=== PATIENT | female | born 1960 | race African-American/Black ===

== ENCOUNTER 2024-08-09 13:27 | Inpatient (IN) | payer OTHER ==
[2024-08-09] MEDS ORDERED: KETOROLAC TROMETHAMINE 15 MG/ML VIAL ONE (15:22)
[2024-08-09] MEDS ORDERED: DEXAMETHASONE SOD PHOSPHATE 10 MG/1 ML VIAL ONE (15:22)
[2024-08-09] MEDS: KETOROLAC TROMETHAMINE 30 MG/1 ML VIAL IM ONE (15:30)
[2024-08-09] MEDS: DEXAMETHASONE SOD PHOSPHATE 10 MG/1 ML VIAL IM ONE (15:31)
[2024-08-09] MEDS ORDERED: METHOCARBAMOL 500 MG TABLET ONE (17:10)
[2024-08-09] MEDS: METHOCARBAMOL 500 MG TABLET PO ONE (17:13)
[2024-08-09] MEDS ORDERED: ACETAMINOPHEN 500 MG TABLET (FP) ONE (18:35)
[2024-08-09] MEDS: ACETAMINOPHEN 500 MG TABLET (FP) PO ONE (18:39)
[2024-08-09] MEDS ORDERED: morphine SULFATE 4 MG/ML VIAL ONE (21:40)
[2024-08-09] MEDS: morphine CARPU-JECT 4 MG/1 ML DISP.SYRIN IVPUSH ONE (21:45)
[2024-08-09 21:50] LABS: HEMATOCRIT 44.3 % (32.4-45.2); HEMOGLOBIN 14.9 GM/dL (10.7-15.3); MCH 29.9 pg (25.7-33.7); MCHC 33.6 g/dl (32.0-36.0); MEAN CELL VOLUME 88.9 fl (80-96); MEAN PLT VOLUME 8.3 fl (7.5-11.1); PLATELET COUNT 333 10^3/uL (134-434); RBC 4.98 M/mm3 (3.60-5.2); RDW 13.5 % (11.6-15.6); WHITE BLOOD COUNT 10.8 K/mm3 (4.0-10.0)
[2024-08-09 22:02] LABS: POTASSIUM 4.2 mmol/L (3.5-5.1)
[2024-08-09 22:04] LABS: CALCIUM 9.1 mg/dL (8.5-10.1)
[2024-08-09 22:05] LABS: BLOOD UREA NITROGEN 8.7 mg/dL (7-18)
[2024-08-09 22:09] LABS: BILIRUBIN,TOTAL 0.4 mg/dL (0.2-1); TOT PROT 7.6 g/dl (6.4-8.2)
[2024-08-09 23:45] LABS: ANISOCYTOSIS 0; HELMET CELLS 0; HOWELL-JOLLY BODIES 0; MACROCYTOSIS 0; OVALOCYTE 0; ROULEAU 0; SICKELED CELLS 0; TARGET CELLS 0; TEAR DROP CELLS 0; TOXIC GRANULATION 0
[2024-08-10] MEDS ORDERED: ACETAMINOPHEN 1000 MG/100 ML BAG IVPB PRN (00:17)
[2024-08-10] MEDS: KETOROLAC TROMETHAMINE 15 MG/ML VIAL IVPUSH PRN (01:01)
[2024-08-10] MEDS ORDERED: morphine SULFATE 4 MG/ML VIAL ONE ×2 (01:39→05:10)
[2024-08-10] MEDS: morphine SULFATE 4 MG/ML VIAL IVPUSH PRN (01:59)
[2024-08-10] MEDS ORDERED: MELATONIN 5 MG TABLETS ONE (02:22)
[2024-08-10] MEDS: MELATONIN 5 MG TABLETS PO ONE (02:26)
[2024-08-10] MEDS ORDERED: morphine SULFATE 4 MG/ML VIAL IVPUSH PRN (07:03)
[2024-08-10 07:33] LABS: HEMATOCRIT 43.8 % (32.4-45.2); HEMOGLOBIN 14.4 GM/dL (10.7-15.3); MCH 29.6 pg (25.7-33.7); MEAN CELL VOLUME 89.7 fl (80-96); MEAN PLT VOLUME 8.8 fl (7.5-11.1); PLATELET COUNT 348 10^3/uL (134-434); RBC 4.88 M/mm3 (3.60-5.2); WHITE BLOOD COUNT 11.7 K/mm3 (4.0-10.0)
[2024-08-10] MEDS: METHOCARBAMOL 750 MG TABLET PO SCH (07:56)
[2024-08-10] MEDS ORDERED: methylPREDNISolone 8 MG TABLET PO ONE (08:08)
[2024-08-10 08:20] LABS: POTASSIUM 4.8 mmol/L (3.5-5.1)
[2024-08-10 08:43] LABS: BLOOD UREA NITROGEN 10.4 mg/dL (7-18)
[2024-08-10 08:44] LABS: CALCIUM 9.5 mg/dL (8.5-10.1)
[2024-08-10 08:45] LABS: ALBUMIN 3.7 g/dl (3.4-5.0); MAGNESIUM 2.2 mg/dL (1.8-2.4)
[2024-08-10 08:48] LABS: CREATININE 0.7 mg/dL (0.55-1.3); PHOSPHOROUS 3.1 mg/dL (2.5-4.9)
[2024-08-10 08:50] LABS: BILIRUBIN,TOTAL 0.6 mg/dL (0.2-1)
[2024-08-10] MEDS: METHOCARBAMOL 500 MG TABLET PO SCH (09:50)
[2024-08-10] MEDS: ENOXAPARIN NA (PORCINE) 40 MG/0.4 ML DISP.SYRIN SQ SCH (09:51)
[2024-08-10] MEDS: ACETAMINOPHEN 500 MG TABLET (FP) PO SCH (09:53)
[2024-08-10] MEDS: GABAPENTIN 300 MG CAPSULE PO SCH (09:53)
[2024-08-10 10:38] VITALS: BMI 27.0
[2024-08-10] MEDS: NAPROXEN 500 MG TABLET PO SCH (10:54)
[2024-08-10] MEDS: METHYLPREDNISOLONE PO ONE (10:54)
[2024-08-10] MEDS: traMADol HCL 50 MG TABLET PO PRN (10:55)
[2024-08-10] MEDS: oxyCODONE HCL 5 MG TABLET PO PRN (12:40)
[2024-08-10] MEDS: LIDOCAINE 5% TOPICAL PATCH TP SCH (13:21)
[2024-08-10 17:13] LABS: EPI CELLS 8 /uL (0-25.1); HYALINE CASTS 0 /uL (0-3.1); URINE APPEARANCE CLEAR; URINE BACTERIA 75 /uL (0-1359); URINE BILIRUBIN NEGATIVE (NEGATIVE); URINE COLOR YELLOW; URINE GLUCOSE (UA) NEGATIVE (NEGATIVE); URINE KETONE TRACE (NEGATIVE); URINE LEUK ESTERASE 1+ (NEGATIVE); URINE NITRITE NEGATIVE (NEGATIVE); URINE PROTEIN NEGATIVE (NEGATIVE); URINE RBC 11 /uL (0-23.9); URINE WBC 21 /uL (0-25.8)
[2024-08-10] MEDS: SODIUM CHLORIDE 1,000 ML IV SCH (18:30)
[2024-08-10] MEDS: MELATONIN 5 MG TABLETS PO PRN (21:58)
[2024-08-10] MEDS: LIDOCAINE PATCH REMOVAL MC SCH (22:05)
[2024-08-11] MEDS ORDERED: methylPREDNISolone 8 MG TABLET PO ONE (08:00)
[2024-08-11] MEDS: METHYLPREDNISOLONE PO ONE (08:05)
[2024-08-11] MEDS: diphenhydrAMINE HCL 25 MG CAPSULE (FP) PO ONE (08:37)
[2024-08-11 09:54] LABS: BASO % 0.5 % (0-2.0); EOS % 0.1 % (0-4.5); HEMATOCRIT 41.5 % (32.4-45.2); HEMOGLOBIN 13.8 GM/dL (10.7-15.3); LYMPH % 30.7 % (8-40); MCH 29.6 pg (25.7-33.7); MCHC 33.4 g/dl (32.0-36.0); MEAN CELL VOLUME 88.8 fl (80-96); MEAN PLT VOLUME 8.4 fl (7.5-11.1); MONO % 5.4 % (3.8-10.2); NEUT % 63.3 % (42.8-82.8); PLATELET COUNT 305 10^3/uL (134-434); RBC 4.67 M/mm3 (3.60-5.2); RDW 13.2 % (11.6-15.6); WHITE BLOOD COUNT 14.1 K/mm3 (4.0-10.0)
[2024-08-11 10:13] LABS: POTASSIUM 4.2 mmol/L (3.5-5.1)
[2024-08-11 10:15] LABS: CALCIUM 8.8 mg/dL (8.5-10.1); MAGNESIUM 1.9 mg/dL (1.8-2.4)
[2024-08-11 10:18] LABS: CREATININE 0.9 mg/dL (0.55-1.3)
[2024-08-11 10:19] LABS: PHOSPHOROUS 3.4 mg/dL (2.5-4.9)
[2024-08-11] MEDS ORDERED: diphenhydrAMINE HCL 25 MG CAPSULE (FP) PO PRN (14:15)
[2024-08-12 08:55] LABS: BASO % 0.6 % (0-2.0); EOS % 0.2 % (0-4.5); HEMOGLOBIN 13.9 GM/dL (10.7-15.3); LYMPH % 54.5 % (8-40); MCH 29.3 pg (25.7-33.7); MCHC 33.2 g/dl (32.0-36.0); MEAN CELL VOLUME 88.3 fl (80-96); MEAN PLT VOLUME 8.7 fl (7.5-11.1); MONO % 6.8 % (3.8-10.2); NEUT % 37.9 % (42.8-82.8); PLATELET COUNT 297 10^3/uL (134-434); RBC 4.76 M/mm3 (3.60-5.2); RDW 13.2 % (11.6-15.6); WHITE BLOOD COUNT 12.6 K/mm3 (4.0-10.0)
[2024-08-12 09:00] LABS: INR 0.93 (0.83-1.09); PROTHROMBIN TIME (PATIENT) 10.7 SEC (9.7-13.0)
[2024-08-12 09:15] LABS: POTASSIUM 4.1 mmol/L (3.5-5.1)
[2024-08-12 09:17] LABS: ALBUMIN 3.4 g/dl (3.4-5.0); BLOOD UREA NITROGEN 11.9 mg/dL (7-18); CALCIUM 8.8 mg/dL (8.5-10.1)
[2024-08-12 09:20] LABS: CREATININE 0.8 mg/dL (0.55-1.3); PHOSPHOROUS 3.1 mg/dL (2.5-4.9)
[2024-08-12 09:22] LABS: BILIRUBIN,TOTAL 0.5 mg/dL (0.2-1); TOT PROT 6.1 g/dl (6.4-8.2)
[2024-08-13 10:16] LABS: BASO % 0.5 % (0-2.0); EOS % 0.6 % (0-4.5); HEMATOCRIT 43.3 % (32.4-45.2); HEMOGLOBIN 14.2 GM/dL (10.7-15.3); LYMPH % 48.8 % (8-40); MCH 29.2 pg (25.7-33.7); MCHC 32.8 g/dl (32.0-36.0); MEAN PLT VOLUME 8.7 fl (7.5-11.1); MONO % 8.1 % (3.8-10.2); PLATELET COUNT 313 10^3/uL (134-434); RBC 4.87 M/mm3 (3.60-5.2); RDW 13.3 % (11.6-15.6); WHITE BLOOD COUNT 12.1 K/mm3 (4.0-10.0)
[2024-08-13 10:38] LABS: POTASSIUM 4.1 mmol/L (3.5-5.1)
[2024-08-13 10:48] LABS: ALBUMIN 3.6 g/dl (3.4-5.0); BLOOD UREA NITROGEN 7.9 mg/dL (7-18); CALCIUM 8.9 mg/dL (8.5-10.1); MAGNESIUM 2.1 mg/dL (1.8-2.4)
[2024-08-13 10:52] LABS: CREATININE 0.8 mg/dL (0.55-1.3)
[2024-08-13 10:53] LABS: BILIRUBIN,TOTAL 0.6 mg/dL (0.2-1); TOT PROT 6.4 g/dl (6.4-8.2)
[2024-08-13] MEDS ORDERED: oxyCODONE HCL 5 MG TABLET PO PRN (14:13)
[2024-08-13] MEDS ORDERED: CYCLOBENZAPRINE HCL 10 MG TABLET (FP) PO PRN (15:15)
[2024-08-13] MEDS: CYCLOBENZAPRINE HCL 5 MG TABLET PO PRN (21:09)
[2024-08-13] MEDS: BISACODYL 10 MG SUPP.RECT PR ONE (21:15)
[2024-08-13] MEDS: POLYETHYLENE GLYCOL (HEALTHYLAX) 3350 17 GM PACKET PO SCH (22:07)
[2024-08-14 10:35] LABS: BASO % 0.6 % (0-2.0); EOS % 1.8 % (0-4.5); HEMATOCRIT 42.5 % (32.4-45.2); HEMOGLOBIN 14.2 GM/dL (10.7-15.3); LYMPH % 54.7 % (8-40); MCH 29.6 pg (25.7-33.7); MCHC 33.4 g/dl (32.0-36.0); MEAN CELL VOLUME 88.7 fl (80-96); MEAN PLT VOLUME 8.9 fl (7.5-11.1); MONO % 7.8 % (3.8-10.2); NEUT % 35.1 % (42.8-82.8); PLATELET COUNT 313 10^3/uL (134-434); RBC 4.79 M/mm3 (3.60-5.2); RDW 13.4 % (11.6-15.6); WHITE BLOOD COUNT 8.9 K/mm3 (4.0-10.0)
[2024-08-14 10:50] LABS: POTASSIUM 4.2 mmol/L (3.5-5.1)
[2024-08-14 10:54] LABS: BLOOD UREA NITROGEN 11.9 mg/dL (7-18)
[2024-08-14 10:57] LABS: CREATININE 0.8 mg/dL (0.55-1.3)
[2024-08-14 11:07] LABS: CALCIUM 9.1 mg/dL (8.5-10.1)
[2024-08-14] MEDS ORDERED: morphine SO4 SUSTAINED ACTING 30 MG TABLET.SA PO PRN (16:14)
[2024-08-15] MEDS: morphine SO4 SUSTAINED ACTING 30 MG TABLET.SA PO PRN (02:01)
[2024-08-15 10:19] LABS: POTASSIUM 4.4 mmol/L (3.5-5.1)
[2024-08-15 10:24] LABS: CALCIUM 8.5 mg/dL (8.5-10.1)
[2024-08-15 10:25] LABS: BLOOD UREA NITROGEN 13.4 mg/dL (7-18)
[2024-08-15 10:28] LABS: CREATININE 0.8 mg/dL (0.55-1.3)
[2024-08-15 14:35] VITALS: RESP 18
[2024-08-16] MEDS: morphine SO4 SUSTAINED ACTING 15 MG TABLET.SA PO ONE (10:23)
[2024-08-16 12:25] VITALS: BP 139/63; PULSE 93; TEMP 98.1
== END 2024-08-16 12:36 | disposition home or self-care (01) | DRG 552 ==
LOC: JERFT 13:27 → JER 13:27 → JERBED 22:10 → OBSVTOIN 08-10 00:25 → J5S 08-10 07:00
PROVIDERS: ADMIT Internal Medicine
DX: M54.31 Sciatica, right side (principal); M54.16 Radiculopathy, lumbar region; D72.829 Elevated white blood cell count, unspecified; M48.061 Spinal stenosis, lumbar region without neurogenic claudication; M48.02 Spinal stenosis, cervical region; F17.210 Nicotine dependence, cigarettes, uncomplicated
CPT/HCPCS: 36415; 72131-TC; 72141-TC; 72148-TC; 80048; 80053; 81003; 83735; 84100; 85025; 85027; 85610; 87077; 87086; 93971-TC; 97116-GP; 97161-GP; 99285-25; G0378; J1100

== ENCOUNTER 2025-03-24 17:30 | Emergency (ER) | payer OTHER ==
[2025-03-24] MEDS ORDERED: ACETAMINOPHEN INJECTION 100 ML ONE (18:22)
[2025-03-24 18:25] LABS: HEMOGLOBIN 12.9 g/dL (11.2-15.7); MCHC 33.1 g/dl (32.2-35.5); MEAN CELL VOLUME 90.1 fl (79.4-94.8); MEAN PLT VOLUME 9.7 fl (9.4-12.3); PLATELET COUNT 249 x10^3/uL (182-369); RDW 13.1 % (12.4-16.4)
[2025-03-24] MEDS: ACETAMINOPHEN 1000 MG/100 ML BAG IVPB ONE (18:30)
[2025-03-24] MEDS: SODIUM CHLORIDE 0.9% 500 ML INFUS.BAG IV ONE (18:30)
[2025-03-24 18:45] LABS: ALBUMIN 4.1 g/dl (3.4-5.0); BILIRUBIN,TOTAL 2.1 mg/dl (0.2-1); CREATININE 0.9 mg/dl (0.6-1.3); POTASSIUM 3.7 mmol/L (3.5-5.1)
[2025-03-24] MEDS ORDERED: PIPERACILLIN/TAZOBACTAM 4.5 GM VIAL IVPB ONE (19:07)
[2025-03-24] MEDS: PIPERACILLIN/TAZOB 4.5 GM 4.5 GM in DEXTROSE 5%-WATER 100 ML IVPB ONE (19:24)
[2025-03-24] MEDS ORDERED: AZITHROMYCIN 500 MG VIAL IVPB ONE (21:06)
[2025-03-24] MEDS: AZITHROMYCIN IVPB 500 MG in DEXTROSE 5%-WATER - 250 ML IVPB ONE (21:16)
[2025-03-25 01:49] VITALS: BP 125/72; PULSE 105
[2025-03-25 01:54] VITALS: RESP 16; TEMP 100
== END 2025-03-25 01:56 | disposition short-term general hospital (02) ==
LOC: FER 17:30
PROC: 3E03329 Introduction of Other Anti-infective into Peripheral Vein, Percutaneous Approach (ICD-10-PCS; principal; 2025-03-24)
PROC: 3E03329 Introduction of Other Anti-infective into Peripheral Vein, Percutaneous Approach (ICD-10-PCS; 2025-03-24)
PROC: 3E033NZ Introduction of Analgesics, Hypnotics, Sedatives into Peripheral Vein, Percutaneous Approach (ICD-10-PCS; 2025-03-24)
DX: J02.0 Streptococcal pharyngitis (principal); K04.7 Periapical abscess without sinus; R53.81 Other malaise; M79.10 Myalgia, unspecified site; R53.1 Weakness
CPT/HCPCS: 0241U-QW; 36415; 70491-TC; 71045-TC-FY; 80053; 85025; 86308; 87651; 96365; 96367; 96375; 99284-25; Q9967